=== PATIENT | female | born 1990 | race Caucasian/White ===

== ENCOUNTER 2019-04-06 01:14 | Inpatient (IN) | payer OTHER ==
[2019-04-06] MEDS: SOD CHLORIDE 0.9% 1,000 ML IV (02:21)
[2019-04-06] MEDS: ONDANSETRON 4 MG INJ IV ×2 (02:21→04:29)
[2019-04-06] MEDS: morphine 4 MG/ML VIAL IV ×2 (02:22→04:29)
[2019-04-06 02:27] LABS: ADD MAN DIFF? NO
[2019-04-06 02:29] LABS: BASOPHILS % 0.3 % (0.0-2.0); EOSINOPHILS # 0.1 10^3/ul (0.0-0.5); EOSINOPHILS % 0.5 % (0.0-7.0); HEMOGLOBIN 11.5 g/dl (12.0-16.0); LYMPHOCYTES # 2.8 10^3/ul (0.8-2.9); LYMPHOCYTES % 21.2 % (15.0-51.0); MEAN CORPUSCULAR HGB CONC 33.8 g/dl (32.0-37.0); MEAN CORPUSCULAR VOLUME 94.7 fl (82.0-101.0); MEAN PLATELET VOLUME 10.8 fl (7.4-10.4); MONOCYTE # 1.1 10^3/ul (0.3-0.9); MONOCYTES % 8.6 % (0.0-11.0); NEUTROPHIL # 9.1 10^3/ul (1.6-7.5); PLATELET COUNT 172 10^3/UL (140-415); RED BLOOD COUNT 3.59 10^6/ul (4.20-5.40); RED CELL DISTRIBUTION WIDTH 11.8 % (11.5-14.5)
[2019-04-06 02:29] LABS: WHITE BLOOD COUNT 13.2 10^3/ul (4.8-10.8)
[2019-04-06 02:47] LABS: ANION GAP 13 (5-13); BLOOD UREA NITROGEN 14 mg/dl (7-20); CARBON DIOXIDE 20 mmol/L (21-31); CHLORIDE 106 mmol/L (97-110); CREATININE 0.69 mg/dl (0.44-1.00); Estimated GFR > 60 mL/min (>60); GLUCOSE 92 mg/dl (70-220); SODIUM 139 mmol/L (135-144)
[2019-04-06] MEDS ORDERED: ACETAMINOPHEN 325 MG TAB PO (06:00)
[2019-04-06] MEDS ORDERED: ONDANSETRON 4 MG INJ IV ×2 (06:00→11:30)
[2019-04-06] MEDS: DOXYCYCLINE 100 MG in SOD CHLORIDE 0.9% 250 ML IVPB (07:22)
[2019-04-06] MEDS: LACTATED RINGER'S 1,000 ML IV ×3 (08:02→23:18)
[2019-04-06] MEDS ORDERED: FENTAnyl 50 MCG/ML VIAL (11:29)
[2019-04-06] MEDS ORDERED: MIDAZOLAM 1 MG/ML 2 ML INJ (11:29)
[2019-04-06] MEDS ORDERED: CEFAZOLIN 1 GM INJ (11:29)
[2019-04-06] MEDS ORDERED: PROPOFOL 20 ML (11:29)
[2019-04-06] MEDS ORDERED: EPHEDrine 25 MG/5 ML SYG (11:29)
[2019-04-06] MEDS ORDERED: METOCLOPRAMIDE 10 MG INJ IV (11:30)
[2019-04-06] MEDS ORDERED: EPHEDrine 25 MG/5 ML SYG IV (11:30)
[2019-04-06] MEDS ORDERED: LABETALOL HCL 20MG INJ IV (11:30)
[2019-04-06] MEDS ORDERED: FENTAnyl 50 MCG/ML VIAL IV ×2 (11:30)
[2019-04-06] MEDS ORDERED: OXYCODONE/ACETAMINOPHEN (5/325) TAB PO (11:30)
[2019-04-06] MEDS ORDERED: KETOROLAC 30 MG INJ IV (11:30)
[2019-04-06] MEDS ORDERED: HYDROmorphONE 1 MG/5 ML IV SYRINGE IV ×2 (11:30)
[2019-04-06] MEDS ORDERED: OXYTOCIN 10 UNIT INJ (11:44)
[2019-04-06] MEDS ORDERED: METOCLOPRAMIDE 10 MG INJ (11:45)
[2019-04-06] MEDS ORDERED: KETOROLAC 30 MG INJ (11:45)
[2019-04-06] MEDS ORDERED: DEXAMETHASONE 4 MG/ML 5 ML INJ (11:45)
[2019-04-06] MEDS ORDERED: ONDANSETRON 4 MG INJ (11:45)
[2019-04-06] MEDS: HYDROCODONE/APAP (5/325) TAB PO ×3 (15:02→21:07)
[2019-04-06] MEDS: CLINDAMYCIN 900 MG/D5W (PMX) 50 ML IVPB ×2 (15:25→21:04)
[2019-04-06] MEDS: GENTAMICIN 80 MG/NS (PMX) 50 ML IVPB ×2 (16:44→23:20)
[2019-04-07] MEDS: HYDROCODONE/APAP (5/325) TAB PO ×5 (02:10→22:54)
[2019-04-07] MEDS: CLINDAMYCIN 900 MG/D5W (PMX) 50 ML IVPB ×3 (05:17→21:35)
[2019-04-07] MEDS: LACTATED RINGER'S 1,000 ML IV ×3 (06:53→21:35)
[2019-04-07] MEDS: GENTAMICIN 80 MG/NS (PMX) 50 ML IVPB ×3 (07:05→22:54)
[2019-04-07] MEDS: HYDROmorphONE 1 MG/ML SYG IV (14:32)
[2019-04-07] MEDS ORDERED: ONDANSETRON 4 MG INJ IV (17:30)
[2019-04-08] MEDS: HYDROCODONE/APAP (5/325) TAB PO ×2 (04:07→08:48)
[2019-04-08] MEDS: CLINDAMYCIN 900 MG/D5W (PMX) 50 ML IVPB (05:33)
[2019-04-08 06:15] LABS: ADD MAN DIFF? NO
[2019-04-08 06:49] LABS: BASOPHILS % 0.4 % (0.0-2.0); EOSINOPHILS # 0.1 10^3/ul (0.0-0.5); EOSINOPHILS % 0.9 % (0.0-7.0); HEMOGLOBIN 8.2 g/dl (12.0-16.0); LYMPHOCYTES # 3.7 10^3/ul (0.8-2.9); LYMPHOCYTES % 52.4 % (15.0-51.0); MEAN CORPUSCULAR HEMOGLOBIN 31.7 pg (29.0-33.0); MEAN CORPUSCULAR HGB CONC 32.8 g/dl (32.0-37.0); MEAN CORPUSCULAR VOLUME 96.5 fl (82.0-101.0); MEAN PLATELET VOLUME 11.5 fl (7.4-10.4); MONOCYTE # 0.7 10^3/ul (0.3-0.9); MONOCYTES % 9.4 % (0.0-11.0); NEUTROPHIL # 2.6 10^3/ul (1.6-7.5); NEUTROPHILS % 36.5 % (39.0-77.0); PLATELET COUNT 138 10^3/UL (140-415); RED BLOOD COUNT 2.59 10^6/ul (4.20-5.40); RED CELL DISTRIBUTION WIDTH 12.4 % (11.5-14.5)
[2019-04-08] MEDS: LACTATED RINGER'S 1,000 ML IV (06:53)
[2019-04-08] MEDS: GENTAMICIN 80 MG/NS (PMX) 50 ML IVPB (07:28)
== END 2019-04-08 11:45 | disposition home or self-care (01) | DRG 770 ==
LOC: FTE 01:14 → PP2 05:32
PROC: 10D17ZZ Extraction of Products of Conception, Retained, Via Natural or Artificial Opening (ICD-10-PCS; principal; 2019-04-06 10:30)
DX: O03.4 Incomplete spontaneous abortion without complication (principal); Z72.0 Tobacco use
CPT/HCPCS: 36415; 76856; 80048; 80170; 84703; 85025; 86850; 86900; 86901; 88305; 96374; 96375; 96376; 99285-25